=== PATIENT | female | born 1960 | race Caucasian/White ===

== ENCOUNTER → 2017-04-01 | Outpatient (CLI) | payer OTHER | LOC: RAD 07:56 | DX: M25.562 Pain in left knee (principal); M17.12 Unilateral primary osteoarthritis, left knee ==

== ENCOUNTER → 2020-06-12 | Outpatient (CLI) | payer OTHER | LOC: RAD 06:58 | DX: M22.42 Chondromalacia patellae, left knee (principal) ==

== ENCOUNTER → 2020-12-28 | Outpatient (CLI) | payer OTHER | LOC: MAMMO 08:30 | DX: Z12.31 Encounter for screening mammogram for malignant neoplasm of breast (principal) ==

== ENCOUNTER → 2021-05-03 | Outpatient (CLI) | payer OTHER | LOC: RAD 09:52 | DX: H53.8 Other visual disturbances (principal); R47.89 Other speech disturbances; R42 Dizziness and giddiness | CPT/HCPCS: Q9967 ==

== ENCOUNTER → 2022-04-28 | Outpatient (CLI) | payer OTHER | LOC: MAMMO 10:30 | DX: Z12.31 Encounter for screening mammogram for malignant neoplasm of breast (principal) ==